=== PATIENT | male | born 1970 | race Caucasian/White ===

== ENCOUNTER 2020-05-07 11:45 | Inpatient (IN) | payer OTHER ==
[~2020-05-07] VITALS: Ht 170.2 cm; Wt 68.0 kg
[2020-05-07] MEDS ORDERED: SODIUM CHLORIDE 0.9% 1000ML 1,000 ML IV STA (11:49)
[2020-05-07] MEDS ORDERED: CEFEPIME 1GM/NS 0.9% 50 ML 50 ML IV SCH (11:49)
[2020-05-07] MEDS ORDERED: VANCOMYCIN 1GM/NS 250 ML 250 ML IV ONE (11:54)
[2020-05-07 12:16] LABS: BILIRUBIN,URINE NEGATIVE (NEGATIVE); CLARITY,URINE CLEAR (CLEAR); COLOR,URINE YELLOW (YELLOW); KETONES,URINE NEGATIVE (NEGATIVE); LEUKOCYTE ESTERASE ,URINE TRACE (NEGATIVE); NITRITE,URINE NEGATIVE (NEGATIVE); PROTEIN,URINE DIPSTICK NEGATIVE (NEGATIVE); RBC,URINE 0-5 /HPF (0-5); URINE UROBILINOGEN 0.2 mg/dL (0.2 - 1); WBC,URINE (MAN) 0-5 /HPF (0-5)
[2020-05-07 12:17] LABS: MUCUS,URINE FEW (RARE)
[2020-05-07 12:50] LABS: BASOPHILS % 0.3 % (0.0-1.0); EOSINOPHILS % 0.2 % (0.0-6.0); HEMATOCRIT 42.5 % (38.2-49.6); HEMOGLOBIN 14.9 g/dL (14.0-18.0); LYMPHOCYTES # (AUTO) 0.4 (1.0-3.2); LYMPHOCYTES % 3.9 % (18.0-39.1); MEAN CORPUSCULAR HEMOGLOBIN 34.3 pg (28-32); MEAN CORPUSCULAR HGB CONC 35.1 g/dL (31-35); MEAN CORPUSCULAR VOLUME 97.7 fL (81-99); MONOCYTES # (AUTO) 0.4 (0.2-0.8); MONOCYTES % 3.4 % (4.4-11.3); NEUTROPHILS # (AUTO) 9.7 (2.1-6.9); NEUTROPHILS % 91.4 % (38.7-80.0); PLATELET COUNT 332 x10e3/uL (140-360); RED BLOOD COUNT 4.35 x10e6/uL (4.3-5.7); RED CELL DISTRIBUTION WIDTH 13.1 % (11.7-14.4)
[2020-05-07] MEDS ORDERED: AZASAN100 MG PO (13:03)
[2020-05-07] MEDS ORDERED: FAMOTIDINE20 MG (13:03)
[2020-05-07] MEDS ORDERED: CYCLOBENZAPRINE5 MG (13:03)
[2020-05-07] MEDS ORDERED: PREDNISONE5 MG PO (13:03)
[2020-05-07] MEDS ORDERED: IBUPROFEN400 MG (13:03)
[2020-05-07] MEDS ORDERED: VITAMIN (13:03)
[2020-05-07 13:04] LABS: ALANINE AMINOTRANSFERASE 14 IU/L (0-55); ALBUMIN 4.2 g/dL (3.5-5.0); ALBUMIN/GLOBULIN RATIO 1.4 (0.8-2.0); ALKALINE PHOSPHATASE 82 IU/L (40-150); ANION GAP 16.9 mmol/L (8-16); BLOOD UREA NITROGEN 7 mg/dL (7-26); BUN/CREATININE RATIO 8 (6-25); CALCIUM 9.2 mg/dL (8.4-10.2); CARBON DIOXIDE 20 mmol/L (22-29); CHLORIDE 103 mmol/L (98-107); CREATININE, SERUM 0.85 mg/dL (0.72-1.25); EST GLOMERULAR FILTRATION RATE > 60 ML/MIN (60-); GLUCOSE 164 mg/dL (74-118); POTASSIUM 3.9 mmol/L (3.5-5.1); SODIUM 136 mmol/L (136-145)
[2020-05-07] MEDS ORDERED: ONDANSETRON HCL INJ 2MG/ML 2ML 2 MG/ML VIAL IV ONE (14:27)
[2020-05-07] MEDS ORDERED: MORPHINE SULFATE INJ 4 MG/ML INJ 1ML IV PRN (14:30)
[2020-05-07] MEDS ORDERED: SODIUM CHLORIDE 0.9% 50ML 50 ML ONE (14:33)
[2020-05-07] MEDS ORDERED: IOPAMIDOL 370 MG/ML 200 ML INFUS..BTL INJ ONE (14:33)
[2020-05-07] MEDS ORDERED: STELARA130 MG/26 (16:05)
[2020-05-07] MEDS ORDERED: STELARA45 MG/0.1 (16:05)
[2020-05-07] MEDS ORDERED: ERGOCAL62.5 MCG PO (16:07)
[2020-05-07 16:49] VITALS: BP 161/97
[2020-05-07 16:50] VITALS: BP 161/97
[2020-05-07 19:18] VITALS: BP 156/97
[2020-05-07] MEDS ORDERED: SODIUM CHLORIDE 0.9% 250ML 250 ML ONE (20:08)
[2020-05-07] MEDS: LEVOFLOXACIN 500MG/D5W 100ML 100 ML IV SCH (20:35)
[2020-05-07 21:39] VITALS: BP 156/97
[2020-05-07] MEDS: METRONIDAZOLE 500MG/NS 100ML 100 ML IV SCH (22:20)
[2020-05-07] MEDS: HYDROMORPHONE 2MG/ML 2 MG/ML ML IV PRN (23:00)
[2020-05-08] VITALS (9 sets, daily range): BP systolic 134–155; BP diastolic 73–92
[2020-05-08 05:22] LABS: BASOPHILS % 0.5 % (0.0-1.0); EOSINOPHILS # (AUTO) 0.1 (0.0-0.4); EOSINOPHILS % 1.8 % (0.0-6.0); HEMATOCRIT 37.6 % (38.2-49.6); HEMOGLOBIN 13.3 g/dL (14.0-18.0); LYMPHOCYTES # (AUTO) 1.4 (1.0-3.2); LYMPHOCYTES % 17.7 % (18.0-39.1); MEAN CORPUSCULAR HEMOGLOBIN 35.8 pg (28-32); MEAN CORPUSCULAR HGB CONC 35.4 g/dL (31-35); MEAN CORPUSCULAR VOLUME 101.3 fL (81-99); MONOCYTES # (AUTO) 0.7 (0.2-0.8); MONOCYTES % 8.3 % (4.4-11.3); NEUTROPHILS # (AUTO) 5.6 (2.1-6.9); NEUTROPHILS % 70.6 % (38.7-80.0); PLATELET COUNT 273 x10e3/uL (140-360); RED BLOOD COUNT 3.71 x10e6/uL (4.3-5.7); RED CELL DISTRIBUTION WIDTH 13.2 % (11.7-14.4)
[2020-05-08 05:45] LABS: ALANINE AMINOTRANSFERASE 11 IU/L (0-55); ALBUMIN 3.7 g/dL (3.5-5.0); ALBUMIN/GLOBULIN RATIO 1.4 (0.8-2.0); ALKALINE PHOSPHATASE 65 IU/L (40-150); ANION GAP 15.5 mmol/L (8-16); BLOOD UREA NITROGEN 8 mg/dL (7-26); BUN/CREATININE RATIO 11 (6-25); CALCIUM 8.7 mg/dL (8.4-10.2); CARBON DIOXIDE 22 mmol/L (22-29); CHLORIDE 107 mmol/L (98-107); CREATININE, SERUM 0.75 mg/dL (0.72-1.25); EST GLOMERULAR FILTRATION RATE > 60 ML/MIN (60-); GLUCOSE 80 mg/dL (74-118); POTASSIUM 3.5 mmol/L (3.5-5.1); SODIUM 141 mmol/L (136-145)
[2020-05-08] MEDS: METRONIDAZOLE 500MG/NS 100ML 100 ML IV SCH ×3 (06:07→21:13)
[2020-05-08] MEDS ORDERED: PREDNISONE 5 MG TAB PO SCH (16:15)
[2020-05-08] MEDS: LEVOFLOXACIN 500MG/D5W 100ML 100 ML IV SCH (20:05)
[2020-05-09] VITALS: BP 135/81
[2020-05-09] MEDS ORDERED: METHYLPREDNISOLONE SOD SUCC 40 MG/ML VIAL 1ML IV STA (02:30)
[2020-05-09 04:00] VITALS: BP 125/76
[2020-05-09] MEDS: METRONIDAZOLE 500MG/NS 100ML 100 ML IV SCH ×3 (05:13→22:00)
[2020-05-09] MEDS: METHYLPREDNISOLONE SOD SUCC 40 MG/ML VIAL 1ML IV SCH ×3 (08:29→20:56)
[2020-05-09 08:55] VITALS: BP_SYST 125; BP_SYST 129; BP_DIAS 76; BP_DIAS 97
[2020-05-09 09:38] LABS: BASOPHILS % 0.2 % (0.0-1.0); HEMATOCRIT 44.4 % (38.2-49.6); HEMOGLOBIN 15.5 g/dL (14.0-18.0); LYMPHOCYTES # (AUTO) 0.4 (1.0-3.2); LYMPHOCYTES % 4.7 % (18.0-39.1); MEAN CORPUSCULAR HEMOGLOBIN 34.2 pg (28-32); MEAN CORPUSCULAR HGB CONC 34.9 g/dL (31-35); MONOCYTES # (AUTO) 0.1 (0.2-0.8); MONOCYTES % 1.1 % (4.4-11.3); NEUTROPHILS # (AUTO) 7.4 (2.1-6.9); PLATELET COUNT 351 x10e3/uL (140-360); RED BLOOD COUNT 4.53 x10e6/uL (4.3-5.7); RED CELL DISTRIBUTION WIDTH 12.9 % (11.7-14.4)
[2020-05-09 10:01] LABS: ALANINE AMINOTRANSFERASE 15 IU/L (0-55); ALBUMIN 4.2 g/dL (3.5-5.0); ALBUMIN/GLOBULIN RATIO 1.4 (0.8-2.0); ALKALINE PHOSPHATASE 84 IU/L (40-150); ANION GAP 19.6 mmol/L (8-16); BLOOD UREA NITROGEN 13 mg/dL (7-26); BUN/CREATININE RATIO 15 (6-25); CALCIUM 9.2 mg/dL (8.4-10.2); CARBON DIOXIDE 20 mmol/L (22-29); CHLORIDE 105 mmol/L (98-107); CREATININE, SERUM 0.84 mg/dL (0.72-1.25); EST GLOMERULAR FILTRATION RATE > 60 ML/MIN (60-); GLUCOSE 115 mg/dL (74-118); SODIUM 140 mmol/L (136-145)
[2020-05-09 10:03] LABS: POTASSIUM 4.6 mmol/L (3.5-5.1)
[2020-05-09 12:59] VITALS: BP 129/95
[2020-05-09 16:03] VITALS: BP 122/86
[2020-05-09 20:00] VITALS: BP_SYST 122; BP_SYST 142; BP_DIAS 86; BP_DIAS 90
[2020-05-09] MEDS: LEVOFLOXACIN 500MG/D5W 100ML 100 ML IV SCH (20:32)
[2020-05-10] VITALS (7 sets, daily range): BP systolic 116–143; BP diastolic 63–99
[2020-05-10] MEDS: METHYLPREDNISOLONE SOD SUCC 40 MG/ML VIAL 1ML IV SCH ×4 (03:33→21:00)
[2020-05-10] MEDS: METRONIDAZOLE 500MG/NS 100ML 100 ML IV SCH ×3 (06:16→23:00)
[2020-05-10 09:15] LABS: BASOPHILS % 0.2 % (0.0-1.0); HEMATOCRIT 42.4 % (38.2-49.6); HEMOGLOBIN 14.9 g/dL (14.0-18.0); LYMPHOCYTES # (AUTO) 0.5 (1.0-3.2); LYMPHOCYTES % 3.7 % (18.0-39.1); MEAN CORPUSCULAR HEMOGLOBIN 34.2 pg (28-32); MEAN CORPUSCULAR HGB CONC 35.1 g/dL (31-35); MEAN CORPUSCULAR VOLUME 97.2 fL (81-99); MONOCYTES # (AUTO) 0.5 (0.2-0.8); MONOCYTES % 3.6 % (4.4-11.3); NEUTROPHILS # (AUTO) 11.8 (2.1-6.9); NEUTROPHILS % 91.7 % (38.7-80.0); PLATELET COUNT 381 x10e3/uL (140-360); RED BLOOD COUNT 4.36 x10e6/uL (4.3-5.7); RED CELL DISTRIBUTION WIDTH 13.1 % (11.7-14.4)
[2020-05-10 09:40] LABS: ALANINE AMINOTRANSFERASE 16 IU/L (0-55); ALBUMIN 4.1 g/dL (3.5-5.0); ALBUMIN/GLOBULIN RATIO 1.4 (0.8-2.0); ALKALINE PHOSPHATASE 69 IU/L (40-150); ANION GAP 19.6 mmol/L (8-16); BLOOD UREA NITROGEN 13 mg/dL (7-26); BUN/CREATININE RATIO 15 (6-25); CALCIUM 9.1 mg/dL (8.4-10.2); CARBON DIOXIDE 20 mmol/L (22-29); CHLORIDE 103 mmol/L (98-107); CREATININE, SERUM 0.86 mg/dL (0.72-1.25); EST GLOMERULAR FILTRATION RATE > 60 ML/MIN (60-); GLUCOSE 191 mg/dL (74-118); POTASSIUM 4.6 mmol/L (3.5-5.1); SODIUM 138 mmol/L (136-145)
[2020-05-10 10:41] LABS: LYMPHOCYTES % (MANUAL) 6 % (19-48); MONOCYTES % (MANUAL) 5 % (3.4-9.0); NEUTROPHILS % (MANUAL) 88 % (40-74); PLATELET ESTIMATE ADEQUATE; PLATELET MORPHOLOGY COMMENT RARE EDTA CLUMPING; RBC MORPHOLOGY COMMENT NORMAL
[2020-05-10] MEDS: LEVOFLOXACIN 500MG/D5W 100ML 100 ML IV SCH (23:47)
[2020-05-11] VITALS (8 sets, daily range): BP systolic 117–160; BP diastolic 71–94
[2020-05-11] MEDS: METHYLPREDNISOLONE SOD SUCC 40 MG/ML VIAL 1ML IV SCH ×4 (03:00→20:36)
[2020-05-11] MEDS: METRONIDAZOLE 500MG/NS 100ML 100 ML IV SCH ×3 (05:44→21:40)
[2020-05-11 09:12] LABS: BASOPHILS % 0.1 % (0.0-1.0); EOSINOPHILS % 0.1 % (0.0-6.0); HEMATOCRIT 45.7 % (38.2-49.6); HEMOGLOBIN 15.9 g/dL (14.0-18.0); LYMPHOCYTES # (AUTO) 0.6 (1.0-3.2); MEAN CORPUSCULAR HEMOGLOBIN 34.3 pg (28-32); MEAN CORPUSCULAR HGB CONC 34.8 g/dL (31-35); MEAN CORPUSCULAR VOLUME 98.7 fL (81-99); MONOCYTES # (AUTO) 0.6 (0.2-0.8); NEUTROPHILS # (AUTO) 12.9 (2.1-6.9); NEUTROPHILS % 90.9 % (38.7-80.0); PLATELET COUNT 384 x10e3/uL (140-360); RED BLOOD COUNT 4.63 x10e6/uL (4.3-5.7); RED CELL DISTRIBUTION WIDTH 13.1 % (11.7-14.4)
[2020-05-11 09:34] LABS: ALANINE AMINOTRANSFERASE 19 IU/L (0-55); ALBUMIN 4.4 g/dL (3.5-5.0); ALBUMIN/GLOBULIN RATIO 1.5 (0.8-2.0); ALKALINE PHOSPHATASE 71 IU/L (40-150); ANION GAP 19.1 mmol/L (8-16); BLOOD UREA NITROGEN 11 mg/dL (7-26); BUN/CREATININE RATIO 13 (6-25); CALCIUM 9.4 mg/dL (8.4-10.2); CARBON DIOXIDE 21 mmol/L (22-29); CHLORIDE 104 mmol/L (98-107); CREATININE, SERUM 0.85 mg/dL (0.72-1.25); EST GLOMERULAR FILTRATION RATE > 60 ML/MIN (60-); GLUCOSE 127 mg/dL (74-118); POTASSIUM 4.1 mmol/L (3.5-5.1); SODIUM 140 mmol/L (136-145)
[2020-05-11] MEDS ORDERED: B&O 60MG R/S 60 MG SUPP PR ONE (09:57)
[2020-05-11] MEDS ORDERED: IOPAMIDOL 300MG/ML 50ML INFUS..BTL IV ONE (09:57)
[2020-05-11 10:37] LABS: LYMPHOCYTES % (MANUAL) 8 % (19-48); MONOCYTES % (MANUAL) 1 % (3.4-9.0); NEUTROPHILS % (MANUAL) 90 % (40-74); PLATELET ESTIMATE SLIGHTLY INCREASED; RBC MORPHOLOGY COMMENT NORMAL
[2020-05-11 10:38] LABS: PLATELET MORPHOLOGY COMMENT RARE EDTA CLUMPING
[2020-05-11] MEDS ORDERED: HYDRALAZINE HCL 20 MG/ML VIAL ONE (11:37)
[2020-05-11] MEDS ORDERED: MIDAZOLAM HCL 2 MG/2 ML VIAL ONE (13:19)
[2020-05-11] MEDS: HYDROMORPHONE 2MG/ML 2 MG/ML ML IV PRN ×2 (15:12→23:00)
[2020-05-11] MEDS ORDERED: LIDOCAINE HCL 2% LOCAL INJ 5 ML SDV VIAL INJ ONE (18:15)
[2020-05-11] MEDS ORDERED: ROCURONIUM BROMIDE 10 MG/ML 5ML VIAL IV ONE (18:15)
[2020-05-11] MEDS ORDERED: DEXAMETHASONE SOD PHOS INJ 4 MG/ML VIAL ONE (18:15)
[2020-05-11] MEDS ORDERED: PROPOFOL IV EMULSION 10 MG/ML 20 ML VIAL ONE (18:15)
[2020-05-11] MEDS ORDERED: SEVOFLURANE INHAL SOLN 250 ML PEN BTL ONE (18:15)
[2020-05-11] MEDS ORDERED: ONDANSETRON HCL INJ 2MG/ML 2ML 2 MG/ML VIAL ONE (18:15)
[2020-05-11] MEDS: LEVOFLOXACIN 500MG/D5W 100ML 100 ML IV SCH (20:36)
[2020-05-12] VITALS: BP 146/92
[2020-05-12] MEDS: METHYLPREDNISOLONE SOD SUCC 40 MG/ML VIAL 1ML IV SCH ×4 (03:15→21:00)
[2020-05-12] MEDS: HYDROMORPHONE 2MG/ML 2 MG/ML ML IV PRN ×2 (03:16→10:23)
[2020-05-12 04:00] VITALS: BP 126/77
[2020-05-12 06:06] LABS: BASOPHILS % 0.2 % (0.0-1.0); EOSINOPHILS % 0.1 % (0.0-6.0); HEMATOCRIT 42.3 % (38.2-49.6); HEMOGLOBIN 14.6 g/dL (14.0-18.0); LYMPHOCYTES # (AUTO) 0.5 (1.0-3.2); LYMPHOCYTES % 3.5 % (18.0-39.1); MEAN CORPUSCULAR HGB CONC 34.5 g/dL (31-35); MEAN CORPUSCULAR VOLUME 98.6 fL (81-99); MONOCYTES # (AUTO) 0.7 (0.2-0.8); MONOCYTES % 4.8 % (4.4-11.3); NEUTROPHILS # (AUTO) 13.6 (2.1-6.9); NEUTROPHILS % 90.3 % (38.7-80.0); PLATELET COUNT 331 x10e3/uL (140-360); RED BLOOD COUNT 4.29 x10e6/uL (4.3-5.7); RED CELL DISTRIBUTION WIDTH 13.2 % (11.7-14.4)
[2020-05-12 06:41] LABS: ALANINE AMINOTRANSFERASE 18 IU/L (0-55); ALBUMIN/GLOBULIN RATIO 1.5 (0.8-2.0); ALKALINE PHOSPHATASE 61 IU/L (40-150); ANION GAP 19.4 mmol/L (8-16); BLOOD UREA NITROGEN 12 mg/dL (7-26); BUN/CREATININE RATIO 15 (6-25); CALCIUM 9.2 mg/dL (8.4-10.2); CARBON DIOXIDE 24 mmol/L (22-29); CHLORIDE 103 mmol/L (98-107); EST GLOMERULAR FILTRATION RATE > 60 ML/MIN (60-); GLUCOSE 128 mg/dL (74-118); POTASSIUM 4.4 mmol/L (3.5-5.1); SODIUM 142 mmol/L (136-145)
[2020-05-12 08:00] VITALS: BP 148/96
[2020-05-12] MEDS: METRONIDAZOLE 500MG/NS 100ML 100 ML IV SCH ×3 (08:24→22:00)
[2020-05-12] MEDS: LISINOPRIL 10 MG TAB PO SCH (10:05)
[2020-05-12 12:00] VITALS: BP 143/86
[2020-05-12 16:00] VITALS: BP 141/95
[2020-05-12 20:00] VITALS: BP 142/90
[2020-05-12] MEDS: LEVOFLOXACIN 500MG/D5W 100ML 100 ML IV SCH (21:00)
[2020-05-12] MEDS: MAGNESIUM HYDROXIDE 30 ML UDC PO SCH (21:10)
[2020-05-13] VITALS (8 sets, daily range): BP systolic 118–160; BP diastolic 88–101
[2020-05-13] MEDS: HYDROMORPHONE 2MG/ML 2 MG/ML ML IV PRN ×3 (01:15→18:20)
[2020-05-13] MEDS: METHYLPREDNISOLONE SOD SUCC 40 MG/ML VIAL 1ML IV SCH ×4 (03:00→21:02)
[2020-05-13 05:35] LABS: BASOPHILS % 0.2 % (0.0-1.0); EOSINOPHILS % 0.1 % (0.0-6.0); HEMATOCRIT 39.9 % (38.2-49.6); HEMOGLOBIN 13.9 g/dL (14.0-18.0); LYMPHOCYTES # (AUTO) 0.6 (1.0-3.2); LYMPHOCYTES % 4.6 % (18.0-39.1); MEAN CORPUSCULAR HEMOGLOBIN 33.9 pg (28-32); MEAN CORPUSCULAR HGB CONC 34.8 g/dL (31-35); MEAN CORPUSCULAR VOLUME 97.3 fL (81-99); MONOCYTES # (AUTO) 0.6 (0.2-0.8); MONOCYTES % 4.9 % (4.4-11.3); NEUTROPHILS % 89.3 % (38.7-80.0); PLATELET COUNT 314 x10e3/uL (140-360); RED CELL DISTRIBUTION WIDTH 13.2 % (11.7-14.4)
[2020-05-13 05:49] LABS: ALANINE AMINOTRANSFERASE 19 IU/L (0-55); ALBUMIN 3.8 g/dL (3.5-5.0); ALBUMIN/GLOBULIN RATIO 1.6 (0.8-2.0); ALKALINE PHOSPHATASE 56 IU/L (40-150); ANION GAP 16.3 mmol/L (8-16); BLOOD UREA NITROGEN 12 mg/dL (7-26); BUN/CREATININE RATIO 16 (6-25); CALCIUM 8.7 mg/dL (8.4-10.2); CARBON DIOXIDE 23 mmol/L (22-29); CHLORIDE 103 mmol/L (98-107); CREATININE, SERUM 0.75 mg/dL (0.72-1.25); EST GLOMERULAR FILTRATION RATE > 60 ML/MIN (60-); GLUCOSE 141 mg/dL (74-118); POTASSIUM 4.3 mmol/L (3.5-5.1); SODIUM 138 mmol/L (136-145)
[2020-05-13] MEDS ORDERED: SODIUM CHLORIDE 0.9% 250ML 250 ML ONE (08:42)
[2020-05-13] MEDS: METRONIDAZOLE 500MG/NS 100ML 100 ML IV SCH ×3 (09:35→22:10)
[2020-05-13] MEDS: LISINOPRIL 10 MG TAB PO SCH (09:36)
[2020-05-13] MEDS: ERYTHROMYCIN 500 MG TAB PO SCH ×3 (13:28→22:15)
[2020-05-13] MEDS: NEOMYCIN SULFATE 500 MG TAB PO SCH ×3 (14:53→22:15)
[2020-05-13] MEDS: MAGNESIUM HYDROXIDE 30 ML UDC PO SCH (21:02)
[2020-05-13] MEDS: LEVOFLOXACIN 500MG/D5W 100ML 100 ML IV SCH (21:02)
[2020-05-14] VITALS (7 sets, daily range): BP systolic 129–150; BP diastolic 91–103
[2020-05-14] MEDS: HYDROMORPHONE 2MG/ML 2 MG/ML ML IV PRN (00:45)
[2020-05-14] MEDS: METHYLPREDNISOLONE SOD SUCC 40 MG/ML VIAL 1ML IV SCH ×4 (03:45→21:49)
[2020-05-14] MEDS: METRONIDAZOLE 500MG/NS 100ML 100 ML IV SCH ×2 (05:29→14:54)
[2020-05-14 06:01] LABS: BASOPHILS % 0.2 % (0.0-1.0); EOSINOPHILS % 0.1 % (0.0-6.0); HEMATOCRIT 44.2 % (38.2-49.6); HEMOGLOBIN 15.5 g/dL (14.0-18.0); LYMPHOCYTES # (AUTO) 0.4 (1.0-3.2); LYMPHOCYTES % 3.3 % (18.0-39.1); MEAN CORPUSCULAR HEMOGLOBIN 34.2 pg (28-32); MEAN CORPUSCULAR HGB CONC 35.1 g/dL (31-35); MEAN CORPUSCULAR VOLUME 97.6 fL (81-99); MONOCYTES # (AUTO) 0.4 (0.2-0.8); MONOCYTES % 3.2 % (4.4-11.3); NEUTROPHILS # (AUTO) 10.5 (2.1-6.9); NEUTROPHILS % 92.4 % (38.7-80.0); PLATELET COUNT 333 x10e3/uL (140-360); RED BLOOD COUNT 4.53 x10e6/uL (4.3-5.7)
[2020-05-14 06:21] LABS: ALANINE AMINOTRANSFERASE 22 IU/L (0-55); ALBUMIN 4.3 g/dL (3.5-5.0); ALBUMIN/GLOBULIN RATIO 1.6 (0.8-2.0); ALKALINE PHOSPHATASE 60 IU/L (40-150); ANION GAP 13.4 mmol/L (8-16); BLOOD UREA NITROGEN 16 mg/dL (7-26); BUN/CREATININE RATIO 21 (6-25); CALCIUM 9.3 mg/dL (8.4-10.2); CARBON DIOXIDE 29 mmol/L (22-29); CHLORIDE 101 mmol/L (98-107); CREATININE, SERUM 0.78 mg/dL (0.72-1.25); EST GLOMERULAR FILTRATION RATE > 60 ML/MIN (60-); GLUCOSE 149 mg/dL (74-118); POTASSIUM 4.4 mmol/L (3.5-5.1); SODIUM 139 mmol/L (136-145)
[2020-05-14] MEDS: LISINOPRIL 10 MG TAB PO SCH (09:29)
[2020-05-14 10:39] LABS: BAND NEUTROPHILS % (MANUAL) 1 %; LYMPHOCYTES % (MANUAL) 2 % (19-48); NEUTROPHILS % (MANUAL) 93 % (40-74)
[2020-05-14 10:40] LABS: PLATELET ESTIMATE ADEQUATE
[2020-05-14 10:42] LABS: RBC MORPHOLOGY COMMENT NORMAL
[2020-05-14] MEDS ORDERED: MIDAZOLAM HCL 2 MG/2 ML VIAL ONE (13:47)
[2020-05-14] MEDS ORDERED: FENTANYL CITRATE/PF 100MCG/2 ML INJ ONE (13:47)
[2020-05-14] MEDS ORDERED: HYDROMORPHONE 2MG/ML 2 MG/ML ML ONE ×2 (15:25→16:09)
[2020-05-14] MEDS: SODIUM CHLORIDE 0.9% 250ML IRRIG IR SCH ×3 (15:45→23:38)
[2020-05-14] MEDS ORDERED: NALOXONE HCL INJ 0.4 MG/ML AMP IV PRN (15:45)
[2020-05-14] MEDS ORDERED: HYDROMORPHONE 0.2MG/ML-SOD CHL 30ML PCA SYRINGE IV PRN (15:45)
[2020-05-14] MEDS ORDERED: MEPERIDINE HCL INJ 25 MG/ML VIAL ONE (16:00)
[2020-05-14] MEDS ORDERED: HYDROMORPHONE 0.2MG/ML-SOD CHL 30ML PCA SYRINGE IV ONE (16:37)
[2020-05-14] MEDS: SODIUM CHLORIDE 0.9% 1000ML 1,000 ML IV SCH ×2 (17:48→23:39)
[2020-05-14] MEDS: PIPER-TAZ 3.375 GM 50 ML IV SCH (18:03)
[2020-05-14] MEDS: PANTOPRAZOLE 40 MG 10ML VIAL IV SCH (18:03)
[2020-05-15 01:33] VITALS: BP 159/93
[2020-05-15] MEDS: METHYLPREDNISOLONE SOD SUCC 40 MG/ML VIAL 1ML IV SCH ×4 (03:30→21:10)
[2020-05-15] MEDS: SODIUM CHLORIDE 0.9% 250ML IRRIG IR SCH ×6 (03:45→23:45)
[2020-05-15] MEDS: PIPER-TAZ 3.375 GM 50 ML IV SCH ×4 (06:06→17:17)
[2020-05-15 06:24] VITALS: BP 138/76
[2020-05-15 07:59] VITALS: BP 132/86
[2020-05-15] MEDS: SODIUM CHLORIDE 0.9% 1000ML 1,000 ML IV SCH ×2 (08:56→16:09)
[2020-05-15] MEDS: LISINOPRIL 10 MG TAB PO SCH (08:57)
[2020-05-15 09:17] LABS: BASOPHILS # (AUTO) 0.1 (0.0-0.1); BASOPHILS % 0.2 % (0.0-1.0); HEMATOCRIT 36.4 % (38.2-49.6); LYMPHOCYTES # (AUTO) 0.3 (1.0-3.2); LYMPHOCYTES % 1.2 % (18.0-39.1); MEAN CORPUSCULAR HEMOGLOBIN 34.5 pg (28-32); MEAN CORPUSCULAR HGB CONC 35.7 g/dL (31-35); MEAN CORPUSCULAR VOLUME 96.6 fL (81-99); MONOCYTES % 4.2 % (4.4-11.3); NEUTROPHILS # (AUTO) 21.9 (2.1-6.9); NEUTROPHILS % 93.7 % (38.7-80.0); PLATELET COUNT 264 x10e3/uL (140-360); RED BLOOD COUNT 3.77 x10e6/uL (4.3-5.7); RED CELL DISTRIBUTION WIDTH 12.8 % (11.7-14.4)
[2020-05-15 09:36] LABS: ANION GAP 11.8 mmol/L (8-16); BLOOD UREA NITROGEN 14 mg/dL (7-26); BUN/CREATININE RATIO 22 (6-25); CARBON DIOXIDE 24 mmol/L (22-29); CHLORIDE 108 mmol/L (98-107); CREATININE, SERUM 0.65 mg/dL (0.72-1.25); EST GLOMERULAR FILTRATION RATE > 60 ML/MIN (60-); GLUCOSE 137 mg/dL (74-118); POTASSIUM 3.8 mmol/L (3.5-5.1); SODIUM 140 mmol/L (136-145)
[2020-05-15 11:52] VITALS: BP 152/85
[2020-05-15 16:07] VITALS: BP 151/87
[2020-05-15] MEDS: PANTOPRAZOLE 40 MG 10ML VIAL IV SCH (17:17)
[2020-05-15 20:00] VITALS: BP 176/97
[2020-05-16] VITALS (8 sets, daily range): BP systolic 141–174; BP diastolic 81–88
[2020-05-16] MEDS ORDERED: METRONIDAZOLE 750MG/NS 150ML 150 ML IV STA ×2 (00:02→02:05)
[2020-05-16] MEDS: SODIUM CHLORIDE 0.9% 1000ML 1,000 ML IV SCH ×4 (00:08→22:35)
[2020-05-16] MEDS: PIPER-TAZ 3.375 GM 50 ML IV SCH ×5 (00:45→23:41)
[2020-05-16] MEDS ORDERED: METRONIDAZOLE 500MG/NS 100ML 150 ML IV STA (02:17)
[2020-05-16] MEDS: SODIUM CHLORIDE 0.9% 250ML IRRIG IR SCH ×6 (03:45→23:40)
[2020-05-16] MEDS: METHYLPREDNISOLONE SOD SUCC 40 MG/ML VIAL 1ML IV SCH ×3 (05:32→21:13)
[2020-05-16] MEDS ORDERED: METRONIDAZOLE 500MG/NS 100ML 100 ML IV SCH (07:00)
[2020-05-16 08:53] LABS: BASOPHILS % 0.1 % (0.0-1.0); EOSINOPHILS % 0.1 % (0.0-6.0); HEMATOCRIT 40.2 % (38.2-49.6); HEMOGLOBIN 14.2 g/dL (14.0-18.0); LYMPHOCYTES # (AUTO) 0.3 (1.0-3.2); LYMPHOCYTES % 1.6 % (18.0-39.1); MEAN CORPUSCULAR HEMOGLOBIN 34.6 pg (28-32); MEAN CORPUSCULAR HGB CONC 35.3 g/dL (31-35); MONOCYTES # (AUTO) 0.9 (0.2-0.8); MONOCYTES % 4.8 % (4.4-11.3); NEUTROPHILS % 92.8 % (38.7-80.0); PLATELET COUNT 248 x10e3/uL (140-360); RED CELL DISTRIBUTION WIDTH 12.5 % (11.7-14.4)
[2020-05-16 09:14] LABS: ANION GAP 13.3 mmol/L (8-16); BLOOD UREA NITROGEN 18 mg/dL (7-26); BUN/CREATININE RATIO 25 (6-25); CALCIUM 8.8 mg/dL (8.4-10.2); CARBON DIOXIDE 29 mmol/L (22-29); CHLORIDE 100 mmol/L (98-107); CREATININE, SERUM 0.71 mg/dL (0.72-1.25); EST GLOMERULAR FILTRATION RATE > 60 ML/MIN (60-); GLUCOSE 151 mg/dL (74-118); POTASSIUM 4.3 mmol/L (3.5-5.1); SODIUM 138 mmol/L (136-145)
[2020-05-16] MEDS: LISINOPRIL 10 MG TAB PO SCH (10:00)
[2020-05-16] MEDS: BISACODYL 10 MG SUPP PR SCH (14:25)
[2020-05-16] MEDS: PANTOPRAZOLE 40 MG 10ML VIAL IV SCH (16:50)
[2020-05-16] MEDS: ONDANSETRON HCL INJ 2MG/ML 2ML 2 MG/ML VIAL IV PRN (20:32)
[2020-05-16] MEDS: HYDROMORPHONE 1MG/1ML INJ IV PRN (20:32)
[2020-05-16 21:29] LABS: BILIRUBIN,URINE NEGATIVE (NEGATIVE); CLARITY,URINE SL CLOUDY (CLEAR); COLOR,URINE AMBER (YELLOW); KETONES,URINE NEGATIVE (NEGATIVE); LEUKOCYTE ESTERASE ,URINE SMALL (NEGATIVE); NITRITE,URINE NEGATIVE (NEGATIVE); PROTEIN,URINE DIPSTICK 1+ (NEGATIVE); URINE UROBILINOGEN 0.2 mg/dL (0.2 - 1)
[2020-05-16 21:45] LABS: BACTERIA,URINE MODERATE /HPF; RBC,URINE 21-50 /HPF (0-5); WBC,URINE (MAN) 0-5 /HPF (0-5)
[2020-05-17] MEDS: HYDROMORPHONE 1MG/1ML INJ IV PRN ×3 (00:08→21:09)
[2020-05-17] MEDS: SODIUM CHLORIDE 0.9% 250ML IRRIG IR SCH ×3 (03:45→11:45)
[2020-05-17 04:00] VITALS: BP 146/88
[2020-05-17] MEDS: METHYLPREDNISOLONE SOD SUCC 40 MG/ML VIAL 1ML IV SCH ×3 (05:04→21:09)
[2020-05-17] MEDS: ONDANSETRON HCL INJ 2MG/ML 2ML 2 MG/ML VIAL IV PRN (05:29)
[2020-05-17] MEDS: PIPER-TAZ 3.375 GM 50 ML IV SCH ×3 (05:34→17:23)
[2020-05-17 07:22] VITALS: BP 154/92
[2020-05-17] MEDS: SODIUM CHLORIDE 0.9% 1000ML 1,000 ML IV SCH ×2 (08:38→17:02)
[2020-05-17] MEDS: BISACODYL 10 MG SUPP PR SCH (08:39)
[2020-05-17] MEDS: LISINOPRIL 10 MG TAB PO SCH (08:39)
[2020-05-17 08:59] VITALS: BP 154/92
[2020-05-17 09:53] LABS: BASOPHILS % 0.1 % (0.0-1.0); HEMATOCRIT 47.6 % (38.2-49.6); HEMOGLOBIN 16.5 g/dL (14.0-18.0); LYMPHOCYTES # (AUTO) 0.4 (1.0-3.2); LYMPHOCYTES % 2.3 % (18.0-39.1); MEAN CORPUSCULAR HEMOGLOBIN 34.6 pg (28-32); MEAN CORPUSCULAR HGB CONC 34.7 g/dL (31-35); MEAN CORPUSCULAR VOLUME 99.8 fL (81-99); MONOCYTES # (AUTO) 0.8 (0.2-0.8); MONOCYTES % 4.9 % (4.4-11.3); NEUTROPHILS # (AUTO) 14.2 (2.1-6.9); NEUTROPHILS % 92.1 % (38.7-80.0); PLATELET COUNT 298 x10e3/uL (140-360); RED BLOOD COUNT 4.77 x10e6/uL (4.3-5.7); RED CELL DISTRIBUTION WIDTH 12.5 % (11.7-14.4)
[2020-05-17 10:22] LABS: ANION GAP 15.7 mmol/L (8-16); BLOOD UREA NITROGEN 20 mg/dL (7-26); BUN/CREATININE RATIO 23 (6-25); CALCIUM 9.7 mg/dL (8.4-10.2); CARBON DIOXIDE 27 mmol/L (22-29); CHLORIDE 101 mmol/L (98-107); CREATININE, SERUM 0.86 mg/dL (0.72-1.25); EST GLOMERULAR FILTRATION RATE > 60 ML/MIN (60-); GLUCOSE 138 mg/dL (74-118); POTASSIUM 4.7 mmol/L (3.5-5.1); SODIUM 139 mmol/L (136-145)
[2020-05-17 11:47] VITALS: BP 139/88
[2020-05-17 15:16] VITALS: BP 138/97
[2020-05-17] MEDS: PANTOPRAZOLE 40 MG 10ML VIAL IV SCH (17:02)
[2020-05-17 20:00] VITALS: BP 144/90
[2020-05-18] VITALS (8 sets, daily range): BP systolic 135–155; BP diastolic 93–99
[2020-05-18] MEDS: PIPER-TAZ 3.375 GM 50 ML IV SCH ×5 (00:02→23:45)
[2020-05-18] MEDS: HYDROMORPHONE 1MG/1ML INJ IV PRN ×3 (01:06→21:45)
[2020-05-18] MEDS: SODIUM CHLORIDE 0.9% 1000ML 1,000 ML IV SCH ×2 (05:27→17:00)
[2020-05-18] MEDS: METHYLPREDNISOLONE SOD SUCC 40 MG/ML VIAL 1ML IV SCH ×3 (05:27→22:00)
[2020-05-18] MEDS: LISINOPRIL 10 MG TAB PO SCH (08:04)
[2020-05-18] MEDS: ONDANSETRON HCL INJ 2MG/ML 2ML 2 MG/ML VIAL IV PRN (14:25)
[2020-05-18] MEDS: PANTOPRAZOLE 40 MG 10ML VIAL IV SCH (17:00)
[2020-05-19] VITALS (8 sets, daily range): BP systolic 121–139; BP diastolic 81–96
[2020-05-19] MEDS: HYDROMORPHONE 1MG/1ML INJ IV PRN ×4 (01:40→23:28)
[2020-05-19 05:46] LABS: BASOPHILS % 0.2 % (0.0-1.0); EOSINOPHILS % 0.2 % (0.0-6.0); HEMATOCRIT 45.7 % (38.2-49.6); HEMOGLOBIN 15.7 g/dL (14.0-18.0); LYMPHOCYTES # (AUTO) 0.9 (1.0-3.2); LYMPHOCYTES % 5.2 % (18.0-39.1); MEAN CORPUSCULAR HEMOGLOBIN 33.8 pg (28-32); MEAN CORPUSCULAR HGB CONC 34.4 g/dL (31-35); MEAN CORPUSCULAR VOLUME 98.5 fL (81-99); MONOCYTES # (AUTO) 1.3 (0.2-0.8); MONOCYTES % 7.4 % (4.4-11.3); NEUTROPHILS # (AUTO) 15.2 (2.1-6.9); NEUTROPHILS % 86.2 % (38.7-80.0); PLATELET COUNT 276 x10e3/uL (140-360); RED BLOOD COUNT 4.64 x10e6/uL (4.3-5.7); RED CELL DISTRIBUTION WIDTH 12.7 % (11.7-14.4)
[2020-05-19] MEDS: PIPER-TAZ 3.375 GM 50 ML IV SCH ×3 (06:00→18:23)
[2020-05-19] MEDS: METHYLPREDNISOLONE SOD SUCC 40 MG/ML VIAL 1ML IV SCH ×3 (06:00→21:43)
[2020-05-19] MEDS: LISINOPRIL 10 MG TAB PO SCH (08:39)
[2020-05-19] MEDS: SODIUM CHLORIDE 0.9% 1000ML 1,000 ML IV SCH ×2 (09:35→21:43)
[2020-05-19] MEDS ORDERED: TYLENOL # 31 EA PO (13:53)
[2020-05-19] MEDS: PANTOPRAZOLE 40 MG 10ML VIAL IV SCH (17:46)
[2020-05-20] VITALS (7 sets, daily range): BP systolic 104–119; BP diastolic 77–91
[2020-05-20] MEDS: PIPER-TAZ 3.375 GM 50 ML IV SCH ×5 (05:53→23:45)
[2020-05-20 07:24] LABS: BASOPHILS % 0.2 % (0.0-1.0); EOSINOPHILS # (AUTO) 0.1 (0.0-0.4); EOSINOPHILS % 0.5 % (0.0-6.0); HEMATOCRIT 42.2 % (38.2-49.6); HEMOGLOBIN 14.5 g/dL (14.0-18.0); LYMPHOCYTES # (AUTO) 1.2 (1.0-3.2); MEAN CORPUSCULAR HEMOGLOBIN 33.8 pg (28-32); MEAN CORPUSCULAR HGB CONC 34.4 g/dL (31-35); MEAN CORPUSCULAR VOLUME 98.4 fL (81-99); MONOCYTES # (AUTO) 1.5 (0.2-0.8); MONOCYTES % 7.6 % (4.4-11.3); NEUTROPHILS # (AUTO) 16.7 (2.1-6.9); NEUTROPHILS % 84.7 % (38.7-80.0); PLATELET COUNT 243 x10e3/uL (140-360); RED BLOOD COUNT 4.29 x10e6/uL (4.3-5.7); RED CELL DISTRIBUTION WIDTH 12.4 % (11.7-14.4)
[2020-05-20 07:46] LABS: ALANINE AMINOTRANSFERASE 31 IU/L (0-55); ALBUMIN 3.6 g/dL (3.5-5.0); ALBUMIN/GLOBULIN RATIO 1.6 (0.8-2.0); ALKALINE PHOSPHATASE 52 IU/L (40-150); ANION GAP 11.3 mmol/L (8-16); BLOOD UREA NITROGEN 16 mg/dL (7-26); BUN/CREATININE RATIO 24 (6-25); CALCIUM 8.6 mg/dL (8.4-10.2); CARBON DIOXIDE 23 mmol/L (22-29); CHLORIDE 104 mmol/L (98-107); CREATININE, SERUM 0.68 mg/dL (0.72-1.25); EST GLOMERULAR FILTRATION RATE > 60 ML/MIN (60-); GLUCOSE 108 mg/dL (74-118); POTASSIUM 4.3 mmol/L (3.5-5.1); SODIUM 134 mmol/L (136-145)
[2020-05-20] MEDS: PREDNISONE 20 MG TAB PO SCH (08:16)
[2020-05-20] MEDS: LISINOPRIL 10 MG TAB PO SCH (08:17)
[2020-05-20] MEDS: HYDROMORPHONE 1MG/1ML INJ IV PRN ×2 (08:24→20:55)
[2020-05-20] MEDS: SODIUM CHLORIDE 0.9% 1000ML 1,000 ML IV SCH (12:20)
[2020-05-20] MEDS: PANTOPRAZOLE 40 MG 10ML VIAL IV SCH (17:29)
[2020-05-21] VITALS: BP 100/78
[2020-05-21] MEDS: HYDROMORPHONE 1MG/1ML INJ IV PRN ×2 (03:05→08:35)
[2020-05-21] MEDS: SODIUM CHLORIDE 0.9% 1000ML 1,000 ML IV SCH ×2 (03:05→14:39)
[2020-05-21 04:00] VITALS: BP 119/80
[2020-05-21] MEDS: PIPER-TAZ 3.375 GM 50 ML IV SCH ×2 (05:44→12:00)
[2020-05-21 06:03] LABS: BASOPHILS % 0.2 % (0.0-1.0); EOSINOPHILS # (AUTO) 0.2 (0.0-0.4); EOSINOPHILS % 1.2 % (0.0-6.0); HEMATOCRIT 39.3 % (38.2-49.6); HEMOGLOBIN 13.8 g/dL (14.0-18.0); LYMPHOCYTES # (AUTO) 1.8 (1.0-3.2); LYMPHOCYTES % 9.6 % (18.0-39.1); MEAN CORPUSCULAR HGB CONC 35.1 g/dL (31-35); MEAN CORPUSCULAR VOLUME 96.8 fL (81-99); MONOCYTES # (AUTO) 1.4 (0.2-0.8); MONOCYTES % 7.9 % (4.4-11.3); NEUTROPHILS # (AUTO) 14.5 (2.1-6.9); NEUTROPHILS % 79.7 % (38.7-80.0); PLATELET COUNT 230 x10e3/uL (140-360); RED BLOOD COUNT 4.06 x10e6/uL (4.3-5.7); RED CELL DISTRIBUTION WIDTH 12.3 % (11.7-14.4)
[2020-05-21 07:47] VITALS: BP 129/71
[2020-05-21] MEDS: PREDNISONE 20 MG TAB PO SCH (08:20)
[2020-05-21] MEDS: LISINOPRIL 10 MG TAB PO SCH (08:21)
[2020-05-21 08:28] VITALS: BP 129/71
[2020-05-21] MEDS ORDERED: ONDANSETRON HCL 4 MG ORAL DISINTEGRATING TAB PO PRN (10:45)
[2020-05-21 11:37] VITALS: BP 121/76
[2020-05-21 15:56] VITALS: BP 109/83
[2020-05-21] MEDS ORDERED: CEFUROXIME250 MG PO (16:47)
[2020-05-21] MEDS ORDERED: PREDNISONE5 MG/5 ML PO (16:49)
== END 2020-05-21 17:38 | disposition home or self-care (01) | DRG 330 ==
LOC: ER 12:53 → ERHOLD 15:33 → MED/SURG 16:15
PROC: 0T788DZ Dilation of Bilateral Ureters with Intraluminal Device, Via Natural or Artificial Opening Endoscopic (ICD-10-PCS; principal; 2020-05-11 10:30)
PROC: BT141ZZ Fluoroscopy of Kidneys, Ureters and Bladder using Low Osmolar Contrast (ICD-10-PCS; principal; 2020-05-11 10:30)
PROC: 0DTB0ZZ Resection of Ileum, Open Approach (ICD-10-PCS; 2020-05-14 13:15)
PROC: 0DBK0ZZ Excision of Ascending Colon, Open Approach (ICD-10-PCS; 2020-05-14 13:15)
PROC: 0TQB0ZZ Repair Bladder, Open Approach (ICD-10-PCS; 2020-05-14 13:15)
DX: K50.913 Crohn's disease, unspecified, with fistula (principal); N32.1 Vesicointestinal fistula; N39.0 Urinary tract infection, site not specified; K56.600 Partial intestinal obstruction, unspecified as to cause; K50.90 Crohn's disease, unspecified, without complications; D64.9 Anemia, unspecified; L72.3 Sebaceous cyst; N50.89 Other specified disorders of the male genital organs; N45.3 Epididymo-orchitis; Z87.891 Personal history of nicotine dependence; Z11.59 Encounter for screening for other viral diseases; K29.60 Other gastritis without bleeding; B96.20 Unspecified Escherichia coli [E. coli] as the cause of diseases classified elsewhere; F17.200 Nicotine dependence, unspecified, uncomplicated; I10 Essential (primary) hypertension; K50.912 Crohn's disease, unspecified, with intestinal obstruction
CPT/HCPCS: 36415; 74019; 74177; 74420; 76870; 80048; 80053; 81001; 83605; 83993; 85025; 85651; 86140; 87040; 87086; 87186; 88307; 93976; 99284; C1758; C1769; C2617; J0360; J0692; J1100; J1170; J1956; J2001; J2175; J2250; J2270; J2405; J2543; J2920; J3010; J3370; J7030; J7050; J7512; Q9967; U0002

== ENCOUNTER → 2020-05-30 | Outpatient (CLI) | payer OTHER ==
[~2020-05-30] MED LIST: AZASAN100 MG PO; CEFUROXIME250 MG PO; CYCLOBENZAPRINE5 MG; DIATRIZOATE MEGLUMINE 300 MG/1 ML BTL UR ONE; ERGOCAL62.5 MCG PO; FAMOTIDINE20 MG; IBUPROFEN400 MG; PREDNISONE5 MG PO; PREDNISONE5 MG/5 ML PO; STELARA130 MG/26; STELARA45 MG/0.1; TYLENOL # 31 EA PO; VITAMIN
--- NOTE | 2020-05-30 15:01 | Diagnostic Imaging Report ---
EXAM: Fluoroscopically guided cystogram INDICATION: Postoperative, vesicointestinal fistula COMPARISON: CT abdomen/pelvis 05/07/2020 FINDINGS: ARTIFICIAL FLOWERS STARCHER: The bowel gas pattern is non-obstructive. Bilateral nephroureteral stents in place. Beverly catheter in place. BLADDER: The bladder fills with contrast and there is no evidence of postoperative leak. Fluoroscopy Time: 0.5 minutes Radiation dose: 5.6 mGy IMPRESSION: Normal contrast opacification of the bladder without leak. The indwelling Beverly catheter was removed following discussion and review of images with Dr. Jun Hampton. Signed by: King Turner MD on 05/30/2020 2:58 PM
== END ==
LOC: DX 13:17
PROVIDERS: ATTEND Urology
DX: N32.1 Vesicointestinal fistula (principal)
CPT/HCPCS: 51600; 74430

== ENCOUNTER → 2020-07-11 | Day surgery (SDC) | payer OTHER ==
[2020-07-06 16:06] LABS: BASOPHILS # (AUTO) 0.1 (0.0-0.1); BASOPHILS % 0.4 % (0.0-1.0); EOSINOPHILS # (AUTO) 0.1 (0.0-0.4); HEMATOCRIT 36.9 % (38.2-49.6); HEMOGLOBIN 12.3 g/dL (14.0-18.0); LYMPHOCYTES # (AUTO) 1.8 (1.0-3.2); LYMPHOCYTES % 13.7 % (18.0-39.1); MEAN CORPUSCULAR HEMOGLOBIN 33.4 pg (28-32); MEAN CORPUSCULAR HGB CONC 33.3 g/dL (31-35); MEAN CORPUSCULAR VOLUME 100.3 fL (81-99); MONOCYTES # (AUTO) 0.7 (0.2-0.8); MONOCYTES % 5.5 % (4.4-11.3); NEUTROPHILS # (AUTO) 10.3 (2.1-6.9); PLATELET COUNT 623 x10e3/uL (140-360); RED BLOOD COUNT 3.68 x10e6/uL (4.3-5.7)
[2020-07-06 16:20] LABS: ANION GAP 14.6 mmol/L (8-16); BLOOD UREA NITROGEN 9 mg/dL (7-26); BUN/CREATININE RATIO 12 (6-25); CALCIUM 9.1 mg/dL (8.4-10.2); CARBON DIOXIDE 29 mmol/L (22-29); CHLORIDE 106 mmol/L (98-107); CREATININE, SERUM 0.75 mg/dL (0.72-1.25); EST GLOMERULAR FILTRATION RATE > 60 ML/MIN (60-); GLUCOSE 114 mg/dL (74-118); POTASSIUM 3.6 mmol/L (3.5-5.1); SODIUM 146 mmol/L (136-145)
--- NOTE | 2020-07-06 16:34 | Diagnostic Imaging Report ---
EXAMINATION: CHEST 2 VIEWS INDICATION: Pre-operative COMPARISON: None FINDINGS: LINES/TUBES:None LUNGS:The lungs are well-inflated. No focal consolidation or pulmonary edema. PLEURA:No pleural effusion or pneumothorax. MEDIASTINUM:The cardiomediastinal silhouette appears normal in size and shape. BONES/SOFT TISSUES:No acute osseous injury. ABDOMEN:No free air under the diaphragm. IMPRESSION: No focal pneumonia or pulmonary edema. Signed by: King Turner MD on 07/06/2020 4:31 PM
[~2020-07-11] MED LIST changes: +B&O 60MG R/S 60 MG SUPP PR ONE; +DEXAMETHASONE SOD PHOS INJ 4 MG/ML VIAL ONE; -DIATRIZOATE MEGLUMINE 300 MG/1 ML BTL UR ONE; +FENTANYL CITRATE/PF 100MCG/2 ML INJ ONE; +FLUCONAZOLE 200 MG/100 ML 100 ML IV ONE; +IOPAMIDOL 300MG/ML 50ML INFUS..BTL IV ONE; +LIDOCAINE HCL 2% LOCAL INJ 5 ML SDV VIAL INJ ONE; +MIDAZOLAM HCL 2 MG/2 ML VIAL ONE; +ONDANSETRON HCL INJ 2MG/ML 2ML 2 MG/ML VIAL ONE; +PIPER-TAZ 3.375 GM 50 ML ONE; +PROPOFOL IV EMULSION 10 MG/ML 20 ML VIAL ONE; +SEVOFLURANE INHAL SOLN 250 ML PEN BTL ONE
[2020-07-11 08:45] VITALS: BP 131/99
--- NOTE | 2020-07-12 02:33 | Operative Report ---
DATE OF PROCEDURE: 07/11/2020 SURGEON: Jun Hampton MD PREOPERATIVE DIAGNOSES: 1. Bilateral indwelling ureteral stents. 2. Ureteral stricture. POSTOPERATIVE DIAGNOSES: 1. Bilateral indwelling ureteral stents. 2. Ureteral stricture. OPERATION PERFORMED: Note these were all staged procedures as part of multi-staged and multi-step process in managing the patient's ureteral strictures and prior fistula: 1. Cystourethroscopy with complicated removal of bilateral indwelling ureteral stents (separate procedure performed for the diagnosis of stents). 2. Bilateral ureteropyeloscopy (surgery performed to evaluate for any residual stricturing). 3. Radiological services for supervision and interpretation of ureteroscopy. 4. Interpretation of retrograde ureteropyelography. 5. Supervision of fluoroscopy, no radiologist present. ANESTHESIA: General. COMPLICATIONS: None. CLINICAL SUMMARY: Ramos Ingram is a 50-year-old man, who underwent repair of an enterovesical fistula. Stents were left in place from preoperative evaluation. The patient was brought to the operating room to remove his stents and evaluate the status of his upper urinary tract. The patient did have ureteral narrowing with hydroureteronephrosis most probably on the right-hand side. He was brought for evaluation. He is aware of the risks of bleeding, infection, injury to adjacent structures, need for additional procedures and elected to proceed. PROCEDURE IN DETAIL: Informed consent was verified. Ramos Ingram was properly identified taken to the operating placed on the cystoscopy table in supine position. Anesthesia was uneventfully begun. The patient was then carefully gently repositioned in the dorsal lithotomy position with all pressure points well padded. His genitalia were prepared and draped in usual sterile fashion. The cystoscope sheath with the visual obturator in place was atraumatically inserted in the patient's urethra. It was guided unremarkably to distal urethra to the bulbar region where there was a relatively unremarkable sphincteric region. We went through this region into the patient's prostate bed, which exhibited bilobar prostatic hypertrophy with fairly kissing lateral lobes and a median lobe that was that appeared to be intravesical and was prominent. We entered the patient's bladder. Panendoscopy revealed grade 1-2 trabeculations, but no tumors, no stones, and no true diverticula normally positioned configured ureteral orifices were identified with a stent emerging from each one. A guidewire was placed into one ureter and guided to the level of the patient's kidney. The stent was grasped completely, removed and discarded. We then passed the semi-rigid ureteroscope into the distal ureter. It did not exhibit any strictures nor stones. We then passed the flexible ureteroscope over the guidewire all the way to the patient's kidney. We performed panendoscopy with intrarenal collecting system. It revealed no suspicious lesions, no tumors, and there were no stones. We carefully re-examined the ureter as we exited, it exhibited no strictures, no stones. Identical procedures with identical findings were performed on the other side. INTERPRETATION OF RETROGRADE URETEROPYELOGRAPHY: Contrast was instilled in retrograde fashion bilaterally. There were no tumors. There were no stones. There were no diverticula. There was mild fullness in the right side more than the left side at the level of the distal ureter, but then no longer appeared to be obstruction and unobstructed drainage was observed fluoroscopically. The patient's bladder was drained. The cystoscope was withdrawn. Belladonna and Opium suppository was placed revealing a 30 g prostate, smooth, nonfluctuant without any nodules. The patient was then uneventfully reversed from anesthesia and taken to recovery room in stable condition with no complications during the procedure. He tolerated the procedure well. Plans will be to order a nuclear medicine renal scan as an outpatient to evaluate the differential post Lasix half-life and then we will follow the patient up in the office for uroflowmetry and bladder ultrasonography. Ongoing management and followup of his trilobar BPH is warranted. Jun Hampton MD [place]/[facility] /[id number]
== END | disposition home or self-care (01) ==
LOC: OR 05:30
PROVIDERS: ATTEND Urology
DX: Z46.6 Encounter for fitting and adjustment of urinary device (principal); N13.5 Crossing vessel and stricture of ureter without hydronephrosis; N40.0 Benign prostatic hyperplasia without lower urinary tract symptoms; N32.89 Other specified disorders of bladder; N39.0 Urinary tract infection, site not specified; K50.90 Crohn's disease, unspecified, without complications; Z01.810 Encounter for preprocedural cardiovascular examination; Z01.812 Encounter for preprocedural laboratory examination; Z01.818 Encounter for other preprocedural examination; Z20.828 Contact with and (suspected) exposure to other viral communicable diseases
CPT/HCPCS: 36415; 52351; 71046; 74420; 80048; 85025; 87086; 87186; 93005; J1100; J1450; J2001; J2250; J2405; J2543; J2704; J3010; Q9967; U0002

== ENCOUNTER 2024-05-25 07:27 | Emergency (ER) | payer OTHER ==
[~2024-05-25] VITALS: Ht 170.2 cm; Wt 68.0 kg
[~2024-05-25 07:27] MED LIST changes: -B&O 60MG R/S 60 MG SUPP PR ONE; -DEXAMETHASONE SOD PHOS INJ 4 MG/ML VIAL ONE; -FENTANYL CITRATE/PF 100MCG/2 ML INJ ONE; -FLUCONAZOLE 200 MG/100 ML 100 ML IV ONE; -IOPAMIDOL 300MG/ML 50ML INFUS..BTL IV ONE; -LIDOCAINE HCL 2% LOCAL INJ 5 ML SDV VIAL INJ ONE; -MIDAZOLAM HCL 2 MG/2 ML VIAL ONE; -ONDANSETRON HCL INJ 2MG/ML 2ML 2 MG/ML VIAL ONE; -PIPER-TAZ 3.375 GM 50 ML ONE; -PROPOFOL IV EMULSION 10 MG/ML 20 ML VIAL ONE; -SEVOFLURANE INHAL SOLN 250 ML PEN BTL ONE
[2024-05-25 07:45] VITALS: TEMP 98.5
[2024-05-25 08:45] LABS: BASOPHILS # (AUTO) 0.1 (0.0-0.1); BASOPHILS % 0.8 % (0.0-1.0); EOSINOPHILS # (AUTO) 0.2 (0.0-0.4); EOSINOPHILS % 1.4 % (0.0-6.0); HEMATOCRIT 45.4 % (38.2-49.6); HEMOGLOBIN 15.5 g/dL (14.0-18.0); LYMPHOCYTES # (AUTO) 1.7 (1.0-3.2); LYMPHOCYTES % 14.9 % (18.0-39.1); MEAN CORPUSCULAR HEMOGLOBIN 33.3 pg (28-32); MEAN CORPUSCULAR HGB CONC 34.1 g/dL (31-35); MEAN CORPUSCULAR VOLUME 97.4 fL (81-99); MONOCYTES # (AUTO) 0.9 (0.2-0.8); MONOCYTES % 8.2 % (4.4-11.3); NEUTROPHILS # (AUTO) 8.4 (2.1-6.9); PLATELET COUNT 397 x10e3/uL (140-360); RED BLOOD COUNT 4.66 x10e6/uL (4.3-5.7); WHITE BLOOD COUNT 11.44 x10e3/uL (4.8-10.8)
[2024-05-25] MEDS: SODIUM CHLORIDE 0.9% 1000ML 1,000 ML IV ONE (08:57)
[2024-05-25] MEDS: Morphine 4mg INJECTION 4 MG/ML INJ IV ONE (08:57)
[2024-05-25] MEDS: ONDANSETRON HCL INJ 2MG/ML 2ML 2 MG/ML VIAL IV STA (08:57)
[2024-05-25 09:06] LABS: INR 0.96; PROTHROMBIN TIME 13.3 seconds (11.9-14.5)
[2024-05-25 09:07] LABS: PARTIAL THROMBOPLASTIN TIME 33.3 seconds (23.8-35.5)
[2024-05-25 09:15] LABS: ALBUMIN 3.5 g/dL (3.5-5.0); ALBUMIN/GLOBULIN RATIO 0.9 (0.8-2.0); BILIRUBIN,TOTAL 0.2 mg/dL (0.2-1.2); CALCIUM 9.8 mg/dL (8.4-10.2); CREATININE, SERUM 0.77 mg/dL (0.72-1.25); TOTAL PROTEIN 7.2 g/dL (6.5-8.1)
[2024-05-25] MEDS ORDERED: IOPAMIDOL 370 MG/ML 100 ML INFUS..BTL INJ ONE (09:29)
[2024-05-25 09:52] LABS: BILIRUBIN,URINE NEGATIVE (NEGATIVE); CLARITY,URINE CLEAR (CLEAR); COLOR,URINE YELLOW (YELLOW); GLUCOSE, URINE NEGATIVE (NEGATIVE); KETONES,URINE NEGATIVE (NEGATIVE); LEUKOCYTE ESTERASE ,URINE NEGATIVE (NEGATIVE); NITRITE,URINE NEGATIVE (NEGATIVE); PH,URINE 5.5 (5 - 7); PROTEIN,URINE DIPSTICK NEGATIVE (NEGATIVE); URINE UROBILINOGEN 0.2 mg/dL (0.2 - 1)
[2024-05-25 10:16] LABS: BACTERIA,URINE RARE /HPF; EPITHELIAL CELLS,URINE RARE /LPF; RBC,URINE 0-5 /HPF (0-5); WBC,URINE (MAN) 0-5 /HPF (0-5)
[2024-05-25] MEDS ORDERED: ONDANSETRON ODT4 MG PO (10:54)
[2024-05-25 12:16] VITALS: PULSE 68; RESP 18; O2SAT 96
== END 2024-05-25 12:27 | disposition home or self-care (01) ==
LOC: ER 07:33
DX: R10.31 Right lower quadrant pain (principal); K50.90 Crohn's disease, unspecified, without complications; R11.0 Nausea; M81.0 Age-related osteoporosis without current pathological fracture; F17.210 Nicotine dependence, cigarettes, uncomplicated
CPT/HCPCS: 36415; 74177; 80053; 81001; 83690; 85025; 85610; 85730; 99284; J2270; J2405; J7030; Q9967